=== PATIENT | female | born 1975 | race Caucasian/White ===

== ENCOUNTER → 2017-12-25 | Outpatient (CLI) | payer BC ==
--- NOTE | 2017-12-25 09:17 | US ---
EXAMINATION TYPE: US abdomen complete DATE OF EXAM: 12/25/2017 COMPARISON: NONE CLINICAL HISTORY: 42-year-old female R74.8 abnormal levels of other serum enzymes. Elevated liver enz ymes TECHNIQUE: Multiple sonographic images of the abdomen are obtained. FINDINGS: NEUROLOGY PROFESSOR NOTES: Technical limitations due to large amount of overlying bowel content EXAM MEASUREMENTS: Liver Length: 14.2 cm Gallbladder Wall: 0.3 cm CBD: 0.3 cm Spleen: 11.6 cm Right Kidney: 10.9 x 3.7 x 4.5 cm Left Kidney: 11.3 x 4.7 x 4.7 cm Pancreas: The majority is visualized and shows no gross abnormality. Liver: Homogeneous echotexture. No focal lesion seen. Gallbladder: No abnormal distention, pericholecystic fluid, or shadowing calculi. The wall thickness is at the upper limits of normal at 3 mm. Evidence for sonographic Guzman's sign: no CBD: wnl Spleen: wnl Right Kidney: no evidence of hydronephrosis Left Kidney: no evidence of hydronephrosis Upper IVC: wnl Abd Aorta: visualized portions appear wnl IMPRESSION: Unremarkable sonographic examination of the abdomen allowing for some slight limitations due to bowel gas..
== END | disposition home or self-care (01) ==
LOC: RADUSWWP 06:58
PROVIDERS: ATTEND Family Medicine
DX: R74.8 Abnormal levels of other serum enzymes (principal)
CPT/HCPCS: 76700

== ENCOUNTER → 2017-12-27 | Outpatient (CLI) | payer BC ==
--- NOTE | 2017-12-27 08:18 | CT ---
EXAMINATION TYPE: CT brain wo con DATE OF EXAM: 12/27/2017 COMPARISON: 11/28/2015 HISTORY: Lt sided [facility] CT DLP: 945.[address] of the brain was performed. The ventricles, basal cisterns and sulci overlying the cerebral convexities demonstrate a normal appe arance. There is no evidence for intracranial hemorrhage or sulcal effacement. No mass effects are seen. Osseous calvarium is intact. If symptoms persist consider MRI as clinically warranted. IMPRESSION: 1. No acute intracranial process is seen at this time.
== END | disposition home or self-care (01) ==
LOC: RADCTMAIN 06:58
PROVIDERS: ATTEND Family Medicine
DX: R51 Headache (principal)
CPT/HCPCS: 70450

== ENCOUNTER → 2019-02-18 | Outpatient (CLI) | payer BC ==
[2019-02-18 11:26] LABS: Basophils % (A) 0 %; Eosinophils # (A) 0.4 k/uL (0-0.7); Eosinophils % (A) 8 %; HCT 35.6 % (34.0-46.0); HGB 11.6 gm/dL (11.4-16.0); Lymphocytes # (A) 1.6 k/uL (1.0-4.8); Lymphocytes % (A) 31 %; MCH 27.7 pg (25.0-35.0); MCHC 32.7 g/dL (31.0-37.0); MCV 84.7 fL (80.0-100.0); Monocytes # (A) 0.3 k/uL (0-1.0); Monocytes % (A) 5 %; Neutrophils # (A) 2.9 k/uL (1.3-7.7); Neutrophils % (A) 54 %; Platelet Count 262 k/uL (150-450); RBC 4.21 m/uL (3.80-5.40); WBC 5.3 k/uL (3.8-10.6)
[2019-02-18 11:38] LABS: Partial Thromboplastin Time 28.9 sec (22.0-30.0); Prothrombin Time 10.5 sec (9.0-12.0)
[2019-02-18 12:40] LABS: Appearance,Urine Clear (Clear); Bilirubin,Urine Negative (Negative); Blood,Urine Negative (Negative); Color,Urine Yellow; Glucose,Urine (UA) Negative (Negative); Ketones,Urine Negative (Negative); Leukocyte Esterase,Urine Negative (Negative); Nitrite,Urine Negative (Negative); PH, Urine 5.5 (5.0-8.0); Protein,Urine Negative (Negative); Specific Gravity,Urine 1.023 (1.001-1.035); Urobilinogen,Urine <2.0 mg/dL (<2.0)
[2019-02-18 17:08] LABS: African American GFR (CKD) 105.4 (60.0-200.0); Anion Gap 9.3 mmol/L (4.00-12.00); Carbon Dioxide 25.7 mmol/L (21.6-31.8); Potassium 4.3 mmol/L (3.5-5.5); Total Bilirubin 0.4 mg/dL (0.2-1.2)
== END | disposition home or self-care (01) ==
LOC: LABWHC1 10:25
PROVIDERS: ATTEND Neurological Surgery
DX: G93.5 Compression of brain (principal); Q07.9 Congenital malformation of nervous system, unspecified
CPT/HCPCS: 36415; 80051; 81003; 82247; 82565; 82947; 84450; 84460; 84520; 85025; 85610; 85730; 87086

== ENCOUNTER → 2019-08-12 | Outpatient (CLI) | payer BC ==
--- NOTE | 2019-08-12 21:36 | MR ---
EXAMINATION TYPE: MR brain wo con DATE OF EXAM: 08/12/2019 COMPARISON: None HISTORY: Nausea/vomiting and dizziness for two weeks. Hx chiari and prior decompression surgery Multiplanar multiecho imaging of the brain was performed without contrast. The ventricles and sulci appear normal. There is no mass effect nor midline shift. There is no sign o f intracranial hemorrhage. Diffusion images show no evidence of acute infarct. Brainstem is intact. T he stokes-white matter structures have normal signal pattern. There is no evidence of cerebral edema. C erebellum appears normal. Corpus callosum is normal. Sella turcica appears normal. There is mucosal thickening in the anterior ethmoid sinuses. This extends into the frontal sinuses. T here is mild mucosal thickening right maxillary sinus. IMPRESSION: Normal MR scan of the brain. Sinusitis.
== END | disposition home or self-care (01) ==
LOC: RADMRIMAIN 20:24
PROVIDERS: ATTEND Family Medicine
DX: Q07.00 Arnold-Chiari syndrome without spina bifida or hydrocephalus (principal)
CPT/HCPCS: 70551

== ENCOUNTER → 2020-06-28 | Outpatient (CLI) | payer BC ==
--- NOTE | 2020-06-30 13:55 | MM ---
Reason for exam: screening (asymptomatic). Last mammogram was performed 6 years and 11 months ago. History: Family history of breast cancer in mother at age 71. Physical Findings: A clinical breast exam by your physician is recommended on an annual basis and results should be correlated with mammographic findings. MG 3D Screening Mammo W/Cad Bilateral CC and MLO view(s) were taken. Prior study comparison: August 10, 2013, left diagnostic mammogram w/CAD. March 05, 2013, CAD bilateral diagnostic mammogram. The breast tissue is heterogeneously dense. This may lower the sensitivity of mammography. Unchanged asymmetric density central left CC view. No significant changes when compared with prior studies. ASSESSMENT: Benign, BI-RAD 2 RECOMMENDATION: Routine screening mammogram of both breasts in 1 year.
== END | disposition home or self-care (01) ==
LOC: RADMAMWWP 13:09
PROVIDERS: ATTEND Family Medicine
DX: Z12.31 Encounter for screening mammogram for malignant neoplasm of breast (principal)
CPT/HCPCS: 77063; 77067

== ENCOUNTER 2020-07-10 09:36 | Observation (INO) | payer BC ==
[2020-07-10] MEDS ORDERED: ASPIRIN 81 MG PO STA (10:00)
--- NOTE | 2020-07-10 10:04 | ED ---
General Adult HPI - General Chief complaint: Chest Pain Stated complaint: chest pain Time Seen by Provider: 07/10/20 09:45 Source: patient, RN notes reviewed Mode of arrival: ambulatory Limitations: no limitations - History of Present Illness Initial comments: Patient is a pleasant 45-year-old female presenting to the emergency Department with complaints of chest discomfort. Onset of symptoms was close to 2 weeks ago. Discomfort feels like an ache however sometimes sharp. Discomfort worsened last night. There is some discomfort in the upper back, midline as well. Patient states it might be slightly difficult to get a deep breath and otherwise no dyspnea. No modifying factors. No associated nausea or diaphoresis. Patient was diagnosed with coronavirus over a month ago. - Related Data Home Medications Medication Instructions Recorded Confirmed Phentermine HCl [Adipex-P] 37.5 mg PO QAM 11/28/15 11/28/15 metFORMIN HCL [Glucophage] 500 mg PO BID 11/28/15 11/28/15 Previous Rx's Medication Instructions Recorded Butalb/Acetaminophen/Caffeine 1 - 2 cap PO Q4HR #15 cap 11/29/15 [Fioricet 50-300-40 mg Capsule] Allergies Allergy/AdvReac Type Severity Reaction Status Date / Time erythromycin base Allergy Rash/Hives Verified 07/10/20 09:41 Review of Systems ROS Statement: Those systems with pertinent positive or pertinent negative responses have been documented in the HPI. ROS Other: All systems not noted in ROS Statement are negative. Constitutional: Denies: fever Eyes: Denies: eye pain ENT: Denies: ear pain Respiratory: Denies: cough Cardiovascular: Reports: as per HPI, chest pain Endocrine: Denies: fatigue Gastrointestinal: Denies: abdominal pain Genitourinary: Denies: dysuria Musculoskeletal: Reports: back pain Skin: Denies: rash Neurological: Denies: weakness Past Medical History Additional Past Medical History / Comment(s): PCOS History of Any Multi-Drug Resistant Organisms: None Reported Past Surgical History: Section Additional Past Surgical History / Comment(s): cardiac ablations, brain decompression in 2019, Past Psychological History: No Psychological Hx Reported Smoking Status: Never smoker Past Alcohol Use History: None Reported Past Drug Use History: None Reported General Exam Limitations: no limitations General appearance: alert, in no apparent distress Head exam: Present: normocephalic Eye exam: Present: normal appearance Neck exam: Present: normal inspection Respiratory exam: Present: normal lung sounds bilaterally, chest wall tenderness (Mild sternal) Cardiovascular Exam: Present: regular rate, normal rhythm Expanded Peripheral pulses: 2+: Radial (R), Radial (L), Posterior Tibialis (R), Posterior Tibialis (L) GI/Abdominal exam: Present: soft. Absent: tenderness Extremities exam: Present: normal inspection. Absent: pedal edema, calf tenderness Neurological exam: Present: alert Psychiatric exam: Present: normal affect, normal mood Skin exam: Present: normal color Course Vital Signs 07/10/20 09:37 Temperature 98.7 F Pulse Rate 96 Respiratory 18 Rate Blood Pressure 136/71 O2 Sat by Pulse 98 Oximetry - Reevaluation(s) Reevaluation #1: 07/10/20 10:01 Patient refuses nitroglycerin. Patient also refuses any sort of pain medication. EKG Findings - EKG Comments: EKG Findings:: Normal sinus rhythm 86. HI 132. QRS 84. QT 374. QTC 447. Normal axis. Normal QRS. No acute ST change. Medical Decision Making - Medical Decision Making Patient reevaluated and resting comfortably in bed. Patient updated on results and plan. Case was discussed with Dr. Youngblood, who will admit covering for Dr. Mendoza. - Lab Data Result diagrams: 07/10/20 10:04 07/10/20 10:04 Lab Results 07/10/20 07/10/20 07/10/20 Range/Units 10:04 10:04 10:04 WBC 5.1 (3.8-10.6) k/uL RBC 4.16 (3.80-5.40) m/uL Hgb 11.8 (11.4-16.0) gm/dL Hct 36.7 (34.0-46.0) % MCV 88.1 (80.0-100.0) fL MCH 28.4 (25.0-35.0) pg MCHC 32.3 (31.0-37.0) g/dL RDW 13.4 (11.5-15.5) % Plt Count 243 (150-450) k/uL MPV 8.7 Neutrophils % 62 % Lymphocytes % 21 % Monocytes % 7 % Eosinophils % 7 % Basophils % 0 % Neutrophils # 3.2 (1.3-7.7) k/uL Lymphocytes # 1.1 (1.0-4.8) k/uL Monocytes # 0.4 (0-1.0) k/uL Eosinophils # 0.3 (0-0.7) k/uL Basophils # 0.0 (0-0.2) k/uL PT 10.6 (9.0-12.0) sec INR 1.0 (<1.2) APTT 25.3 (22.0-30.0) sec D-Dimer 0.36 (<0.60) mg/L FEU Sodium 138 (137-145) mmol/L Potassium 4.0 (3.5-5.1) mmol/L Chloride 106 (98-107) mmol/L Carbon Dioxide 25 (22-30) mmol/L Anion Gap 7 mmol/L BUN 8 (7-17) mg/dL Creatinine 0.74 (0.52-1.04) mg/dL Est GFR (CKD-EPI)AfAm >90 (>60 ml/min/1.73 sqM) Est GFR (CKD-EPI)NonAf >90 (>60 ml/min/1.73 sqM) Glucose 120 H (74-99) mg/dL Calcium 9.5 (8.4-10.2) mg/dL Magnesium 1.9 (1.6-2.3) mg/dL Total Bilirubin 0.4 (0.2-1.3) mg/dL AST 72 H (14-36) U/L ALT 61 H (4-34) U/L Alkaline Phosphatase 88 (38-126) U/L Troponin I (0.000-0.034) ng/mL NT-Pro-B Natriuret Pep pg/mL Total Protein 7.3 (6.3-8.2) g/dL Albumin 4.2 (3.5-5.0) g/dL Amylase 78 (30-110) U/L Lipase 69 (23-300) U/L 07/10/20 07/10/20 Range/Units 10:04 10:04 WBC (3.8-10.6) k/uL RBC (3.80-5.40) m/uL Hgb (11.4-16.0) gm/dL Hct (34.0-46.0) % MCV (80.0-100.0) fL MCH (25.0-35.0) pg MCHC (31.0-37.0) g/dL RDW (11.5-15.5) % Plt Count (150-450) k/uL MPV Neutrophils % % Lymphocytes % % Monocytes % % Eosinophils % % Basophils % % Neutrophils # (1.3-7.7) k/uL Lymphocytes # (1.0-4.8) k/uL Monocytes # (0-1.0) k/uL Eosinophils # (0-0.7) k/uL Basophils # (0-0.2) k/uL PT (9.0-12.0) sec INR (<1.2) APTT (22.0-30.0) sec D-Dimer (<0.60) mg/L FEU Sodium (137-145) mmol/L Potassium (3.5-5.1) mmol/L Chloride (98-107) mmol/L Carbon Dioxide (22-30) mmol/L Anion Gap mmol/L BUN (7-17) mg/dL Creatinine (0.52-1.04) mg/dL Est GFR (CKD-EPI)AfAm (>60 ml/min/1.73 sqM) Est GFR (CKD-EPI)NonAf (>60 ml/min/1.73 sqM) Glucose (74-99) mg/dL Calcium (8.4-10.2) mg/dL Magnesium (1.6-2.3) mg/dL Total Bilirubin (0.2-1.3) mg/dL AST (14-36) U/L ALT (4-34) U/L Alkaline Phosphatase (38-126) U/L Troponin I <0.012 (0.000-0.034) ng/mL NT-Pro-B Natriuret Pep 223 pg/mL Total Protein (6.3-8.2) g/dL Albumin (3.5-5.0) g/dL Amylase (30-110) U/L Lipase (23-300) U/L Disposition Clinical Impression: Chest pain Disposition: ADMITTED IP TO THIS HOSP Is patient prescribed a controlled substance at d/c from ED?: No Referrals: Simone Mendoza MD [Primary Care Provider] - 1-2 days Decision Time: 11:32
[2020-07-10 10:14] LABS: Basophils % (A) 0 %; Eosinophils # (A) 0.3 k/uL (0-0.7); Eosinophils % (A) 7 %; HCT 36.7 % (34.0-46.0); HGB 11.8 gm/dL (11.4-16.0); Lymphocytes # (A) 1.1 k/uL (1.0-4.8); Lymphocytes % (A) 21 %; MCH 28.4 pg (25.0-35.0); MCHC 32.3 g/dL (31.0-37.0); MCV 88.1 fL (80.0-100.0); Mean Platelet Volume 8.7; Monocytes # (A) 0.4 k/uL (0-1.0); Monocytes % (A) 7 %; Neutrophils # (A) 3.2 k/uL (1.3-7.7); Neutrophils % (A) 62 %; Platelet Count 243 k/uL (150-450); RBC 4.16 m/uL (3.80-5.40); RDW 13.4 % (11.5-15.5); WBC 5.1 k/uL (3.8-10.6)
[2020-07-10 10:22] LABS: ALT 61 U/L (4-34); AST 72 U/L (14-36); African American GFR (CKD) >90 (>60 ml/min/1.73 sqM); Albumin 4.2 g/dL (3.5-5.0); Alkaline Phosphatase 88 U/L (38-126); Amylase 78 U/L (30-110); Anion Gap 7 mmol/L; Blood Urea Nitrogen 8 mg/dL (7-17); Calcium 9.5 mg/dL (8.4-10.2); Carbon Dioxide 25 mmol/L (22-30); Chloride 106 mmol/L (98-107); Glucose 120 mg/dL (74-99); Lipase 69 U/L (23-300); Magnesium 1.9 mg/dL (1.6-2.3); Non-African American GFR(CKD) >90 (>60 ml/min/1.73 sqM); Sodium 138 mmol/L (137-145); Total Bilirubin 0.4 mg/dL (0.2-1.3); Total Protein 7.3 g/dL (6.3-8.2)
--- NOTE | 2020-07-10 10:27 | XR ---
EXAMINATION TYPE: XR chest 2V DATE OF EXAM: 07/10/2020 COMPARISON: 11/25/2012 INDICATION: Chest pain TECHNIQUE: Frontal and lateral views of the chest are obtained. FINDINGS: The heart size is normal. The pulmonary vasculature is normal. The lungs are clear. IMPRESSION: 1. No acute pulmonary process.
[2020-07-10 10:31] LABS: D-Dimer 0.36 mg/L FEU (<0.60); Partial Thromboplastin Time 25.3 sec (22.0-30.0); Prothrombin Time 10.6 sec (9.0-12.0)
[2020-07-10] MEDS ORDERED: NITROGLYCERIN SL TABS 0.4 MG TAB SUBLINGUAL PRN (11:32)
--- NOTE | 2020-07-10 12:32 | US ---
EXAMINATION TYPE: US gallbladder DATE OF EXAM: 07/10/2020 COMPARISON: 12/25/2017 CLINICAL HISTORY: pain. back pain, elevated liver enzymes EXAM MEASUREMENTS: Liver Length: 15.0 cm Gallbladder Wall: 0.2 cm CBD: 0.4 cm Right Kidney: 10.1 x 4.8 x 4.4 cm *Technical limitations due to patient's body habitus and large amount of overlying bowel content Pancreas: Obscured by bowel gas Liver: appears wnl as visualized Gallbladder: no evidence of stones Evidence for sonographic Guzman's sign: no CBD: limited evaluation Right Kidney: no evidence of hydronephrosis IMPRESSION: 1. No acute ultrasound abnormality right upper quadrant
[2020-07-10] MEDS ORDERED: RX INFO: IV CONTRAST WAS GIVEN 1 EACH MISC MISCELLANE PRN (15:49)
[2020-07-10] MEDS ORDERED: methylPREDNISolone SOD SUCCI 125 MG/2 ML VIAL IV STA (16:08)
[2020-07-10] MEDS ORDERED: diphenhydrAMINE 50 MG/ML 1 ML VIAL IVP STA (16:08)
[2020-07-10] MEDS ORDERED: FAMOTIDINE 20 MG/2 ML VIAL IV STA (16:09)
--- NOTE | 2020-07-10 17:23 | CT ---
EXAMINATION TYPE: CT chest angio for PE DATE OF EXAM: 07/10/2020 COMPARISON: 01/20/2013 HISTORY: CHEST PAIN AND DIFFICULTY BREATHING. CT DLP: 446.2 mGycm Automated exposure control for dose reduction was used. CONTRAST: Performed with IV Contrast, patient injected with 76ML mL of Isovue 370. There are 3-D post processed images. The lungs are clear of infiltrate. There is no pleural effusion. There is no pericardial effusion. He art size is normal. There is no mediastinal adenopathy. There are no hilar masses. Thoracic aorta is intact. There is no aneurysm or dissection. There is normal contrast opacification of the pulmonary arteries. There are n o filling defects. Upper abdominal soft tissues are intact. There is some spurring in the thoracic spine. IMPRESSION: Normal exam. No evidence of pulmonary embolism.
--- NOTE | 2020-07-10 19:07 | P.HPIM ---
History of Present Illness H&P Date: 07/10/20 Chief Complaint: Chest pain History of presenting complaint: This is a very pleasant 45-year-old patient, follows the Dr. Simone Mendoza. Chronic stable medical conditions include polycystic ovarian syndrome for which she stopped taking the metformin, had brain decompression 2019 due to Chiari syndrome which she was having headaches now resolved. Cardiac ablation for AV reentry tachycardia. Patient for a week has been having pain to the middle of the chest. More so but localized. Also at times she has the pain in the middle of the back. Sometimes she is unable to take a full breath. No cough. No fever no chills. Appetite is fair. No edema. Patient denies COVID couple of months ago. Predominantly give her a headache and some tiredness. She tested positive with both appears to be IgM and IgG antibodies at that time. This week patient tested negative for COVID and she had to visit her mother at the [facility]. Patient does feel of pain is more pronounced when she is laying down. Not necessarily related to activity. Patient also has GERD symptoms still co ntrolled with Protonix. Review of systems: GEN.: None EYES: None HEENT: None NECK: None RESPIRATORY: None CARDIOVASCULAR: None GASTROINTESTINAL: None GENITOURINARY: None MUSCULOSKELETAL: As above LYMPHATICS: None HEMATOLOGICAL: None PSYCHIATRY: None NEUROLOGICAL: None Past medical history to include: Polycystic ovary syndrome, brain decompression 2019 for Chiari malformation, AV jillian reentry tachycardia with ablation, peptic ulcer disease, GERD Social history: . Does not smoke or drink alcohol Physical examination: VITAL SIGNS: 98.7, 96, 18, 1 36 x 71, 98% room air GENERAL: BMI 36, sitting on bed, comfortable. EYES: Pupils equal. Conjunctiva normal. HEENT: External appearance of nose and ears normal, oral cavity grossly normal. NECK: JVD not raised; masses not palpable. HEART: First and second heart sounds are normal; no edema. LUNGS: Respiratory rate normal; clear to auscultation. ABDOMEN: Soft, nontender, liver spleen not palpable, no masses palpable. PSYCH: Alert and oriented x3; mood and affect normal. NEUROLOGICAL: Cranial nerves grossly intact; no facial asymmetry, power and sensation grossly intact. LYMPHATICS: No lymph nodes palpable in the axilla and neck MUSCULAR skeletal: Localized tenderness on the left side of the sternum, reproducible, localized tenderness just left to the thoracic spine. Reproducible INVESTIGATIONS, reviewed in the clinical context: White count 5.1 hemoglobin 11.8 platelets 243 potassium 4.0 creatinine 0.74 AST 72 ALT 61 Troponin I 3 negative D-dimer 0.36 EKG tracing personally reviewed by me-normal sinus rhythm Chest x-ray film personally reviewed by me-lung santizo clear Assessment: -This is a patient who presents with 1 week of chest pain. Not related to activity. Noncardiac sounding. Patient has localized superficial tenderness at the costochondral junction both anteriorly and posterior daily. Would like to rule out a cardiac cause. Troponins have been negative. EKG is unremarkable. -Rule out PE. Low probability -Obesity BMI 36 -Polycystic ovarian syndrome -History of brain decompression for Chiari's syndrome -GERD -Peptic ulcer disease patient is pending a follow-up endoscopy in the next few days Plan: Care was discussed with the patient. Serial cardiac enzymes and place. Cartilage he consulted. Though less likely we'll do a computed tomography scan of the chest to rule out PE. Past Medical History Additional Past Medical History / Comment(s): PCOS, brain decompression 2019 due to chrari syndrome. av rentry tachycardia History of Any Multi-Drug Resistant Organisms: None Reported Past Surgical History: Section Additional Past Surgical History / Comment(s): cardiac ablations, brain decompression in 2019 Past Anesthesia/Blood Transfusion Reactions: No Reported Reaction Past Psychological History: No Psychological Hx Reported Smoking Status: Never smoker Past Alcohol Use History: None Reported Past Drug Use History: None Reported - Past Family History Mother Additional Family Medical History / Comment(s): multiple strokes. breast CA. htn. dm Father Additional Family Medical History / Comment(s): [place] Medications and Allergies Home Medications Medication Instructions Recorded Confirmed Type Acetaminophen Tab [Tylenol] 1,000 mg PO Q8H PRN 07/10/20 07/10/20 History Pantoprazole [Protonix] 40 mg PO HS 07/10/20 07/10/20 History Allergies Allergy/AdvReac Type Severity Reaction Status Date / Time egg Allergy Mild Unknown Verified 07/10/20 12:02 erythromycin base Allergy Rash/Hives Verified 07/10/20 12:02 Gadolinium-Containing Allergy Swelling Verified 07/10/20 18:35 Contrast Medi Physical Exam Vitals: Vital Signs Temp Pulse Pulse Resp BP BP Pulse Ox 07/10/20 11:50 98.8 F 77 18 134/89 100 07/10/20 11:37 79 18 126/86 98 07/10/20 09:37 98.7 F 96 18 136/71 98 Intake and Output 07/09/20 07/10/20 07/10/20 22:59 06:59 14:59 Other: Weight 104.326 kg Results CBC & Chem 7: 07/10/20 10:04 07/10/20 10:04 Labs: Abnormal Lab Results - Last 24 Hours (Table) 07/10/20 Range/Units 10:04 Glucose 120 H (74-99) mg/dL AST 72 H (14-36) U/L ALT 61 H (4-34) U/L Thrombosis Risk Factor Assmnt - Choose All That Apply Each Factor Represents 1 point: Age 41-60 years Thrombosis Risk Factor Assessment Total Risk Factor Score: 1 Thrombosis Risk Factor Assessment Level: Low Risk
[2020-07-11 04:36] LABS: Cholesterol 210 mg/dL (<200); HDL Cholesterol 69 mg/dL (40-60); LDL Cholesterol,Calculated 104 mg/dL (0-99); Triglycerides 183 mg/dL (<150)
[2020-07-11] MEDS ORDERED: ACETAMINOPHEN TAB 325 MG TAB PO PRN (08:41)
[2020-07-11] MEDS ORDERED: ASPIRIN 325 MG TAB PO SCH (09:00)
--- NOTE | 2020-07-11 10:25 | ECHOF ---
Referral Reason:cp, sob MEASUREMENTS -------- HEIGHT: 170.2 cm WEIGHT: 105.2 kg BP: RVIDd: 3.2 cm (< 3.3) IVSd: 1.1 cm (0.6 - 1.1) LVIDd: 3.9 cm (3.9 - 5.3) LVPWd: 1.0 cm (0.6 - 1.1) IVSs: 1.4 cm LVIDs: 3.1 cm LVPWs: 1.2 cm LAESV Index (A-L): 21.69 ml/m Ao Diam: 3.0 cm (2.0 - 3.7) AV Cusp: 2.1 cm (1.5 - 2.6) MV EXCURSION: 13.536 mm (> 18.000) MV EF SLOPE: 85 mm/s (70 - 150) EPSS: 0.9 cm MV E Claude: 0.76 m/s MV DecT: 186 ms MV A Claude: 0.69 m/s MV E/A Ratio: 1.11 RAP: 5.00 mmHg RVSP: 20.32 mmHg FINDINGS -------- Sinus rhythm. This was a technically adequate study. LV size, wall thickness and systolic function are normal, with an EF greater than 55%. The left cody tricular size is normal. The diastolic filling pattern is normal for the age of the patient 7.48. The right ventricle is normal in size. Normal LA size by volume 22+/-6 ml/m2. The right atrial size is normal. The aortic valve is trileaflet, and appears structurally normal. No aortic stenosis or regurgitation. The mitral valve is normal. Mild mitral regurgitation is present. The tricuspid valve appears structurally normal. Trace tricuspid regurgitation present. Right cody tricular systolic pressure is normal at < 35 mmHg. There is no pulmonic regurgitation present. The aortic root size is normal. There is no pericardial effusion. CONCLUSIONS -------- 1. LV size, wall thickness and systolic function are normal, with an EF greater than 55%. 2. Normal LA size by volume 22+/-6 ml/m2. 3. The aortic valve is trileaflet, and appears structurally normal. No aortic stenosis or regurgitati on. 4. Mild mitral regurgitation is present. 5. Trace tricuspid regurgitation present. 6. There is no pericardial effusion. PRINCIPAL CYBER ENGINEER: Abril Guo RDCS
--- NOTE | 2020-07-11 11:41 | P.CRDCN ---
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 We have been asked to see in consultation for chest pain. She states for the last few days she has been experiencing a tender achy pain in the chest in the mid-sternal region that radiates through to her back. She states the pain is worse with movement of her torso and deep inspiration. She denies associated shortness of breath, dizziness, palpitations, nausea, vomiting or diaphoresis. DIAGNOSTICS EKG reveals sinus mechanism with no acute ST or T wave abnormalities noted. Telemetry tracings indicate sinus mechanism with no acute arrhythmias. Chest xray negative for an acute cardiopulmonary process. CTA negative for pulmonary embolism with normal appearing thoracic aorta. Laboratory reviewed, CBC unremarkable, d-dimer 0.36, sodium 138, potassium 4.0, creatinine 0.74, magnesium 1.9, cardiac enzymes negative 3, NT proBNP 223, triglycerides 183, LDL 104 and HDL 69. She takes no daily cardiac medications. REVIEW OF SYSTEMS At the time of my exam: CONSTITUTIONAL: Denies fever or chills. CARDIOVASCULAR: Denies chest pain, shortness of breath, orthopnea, PND or palpitations. RESPIRATORY: Denies cough. GASTROINTESTINAL: Denies abdominal pain, diarrhea, constipation, nausea or vomiting. MUSCULOSKELETAL: Complains of reproducible ache in the midsternal region. NEUROLOGIC: Denies numbness, tingling, headacbe or weakness. ENDOCRINE: Denies fatigue, weight change, polydipsia or polyurina. GENITOURINARY: Denies burning, hematuria or urgency with micturation. HEMATOLOGIC: Denies history of anemia or bleeding. PHYSICAL EXAMINATION Blood pressure 116/69 heart rate 69 afebrile and maintaining oxygen saturation on room air. CONSTITUTIONAL: No apparent distress. HEENT: Head is normocephalic. Pupils are equal, round. Sclerae anicteric. Mucous membranes of the mouth are moist. No JVD. No carotid bruit. CHEST EXAMINATION: Lungs are clear to auscultation. Positive mild chest wall tenderness is noted on palpation and with deep breathing. HEART EXAMINATION: Regular rate and rhythm. S1, S2 heard. No murmurs, gallops or rub. ABDOMEN: Soft, nontender. Positive bowel sounds. EXTREMITIES: 2+ peripheral pulses, no lower extremity edema and no calf tenderness. NEUROLOGIC EXAMINATION: Patient is awake, alert and oriented x3. 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 Obtain 2-D echocardiogram and Doppler study to assess cardiac structure and function. Perform stress echocardiogram to assess for stress-induced cardiac ischemia. If stress test is normal she may be discharged from a cardiac perspective. Thank you kindly for this consultation. Nurse Practitioner note has been reviewed, I agree with a documented findings and plan of care. Patient was seen and examined. Past Medical History Additional Past Medical History / Comment(s): PCOS, brain decompression 2019 due to chrari syndrome. av rentry tachycardia History of Any Multi-Drug Resistant Organisms: None Reported Past Surgical History: Section Additional Past Surgical History / Comment(s): cardiac ablations, brain decompression in 2019 Past Anesthesia/Blood Transfusion Reactions: No Reported Reaction Past Psychological History: No Psychological Hx Reported Smoking Status: Never smoker Past Alcohol Use History: None Reported Past Drug Use History: None Reported - Past Family History Mother Additional Family Medical History / Comment(s): multiple strokes. breast CA. htn. dm Father Additional Family Medical History / Comment(s): DC Medications and Allergies Home Medications Medication Instructions Recorded Confirmed Type Acetaminophen Tab [Tylenol] 1,000 mg PO Q8H PRN 07/10/20 07/10/20 History Pantoprazole [Protonix] 40 mg PO HS 07/10/20 07/10/20 History Allergies Allergy/AdvReac Type Severity Reaction Status Date / Time egg Allergy Mild Unknown Verified 07/10/20 12:02 erythromycin base Allergy Rash/Hives Verified 07/10/20 12:02 Gadolinium-Containing Allergy Swelling Verified 07/10/20 18:35 Contrast Medi Physical Exam Vitals: Vital Signs Temp Pulse Pulse Resp BP BP Pulse Ox 07/11/20 04:00 97.6 F 69 16 116/69 99 07/11/20 02:00 83 17 07/10/20 23:44 97.8 F 83 17 99/62 95 07/10/20 19:45 98.1 F 92 16 134/77 96 07/10/20 15:12 98.5 F 77 18 125/83 100 07/10/20 11:50 98.8 F 77 18 134/89 100 07/10/20 11:37 79 18 126/86 98 07/10/20 09:37 98.7 F 96 18 136/71 98 Intake and Output 07/10/20 07/11/20 07/11/20 22:59 06:59 14:59 Intake Total 240 Balance 240 Intake: Oral 240 Other: Voiding Method Toilet # Voids 1 Weight 105.4 kg Results 07/10/20 10:04 07/10/20 10:04 Cardiac Enzymes 07/10/20 07/10/20 07/10/20 Range/Units 10:04 10:04 12:14 AST 72 H (14-36) U/L Troponin I <0.012 <0.012 (0.000-0.034) ng/mL 07/10/20 Range/Units 16:03 AST (14-36) U/L Troponin I <0.012 (0.000-0.034) ng/mL Coagulation 07/10/20 Range/Units 10:04 PT 10.6 (9.0-12.0) sec APTT 25.3 (22.0-30.0) sec Lipids 07/10/20 Range/Units 10:04 Triglycerides 183 H (<150) mg/dL Cholesterol 210 H (<200) mg/dL HDL Cholesterol 69 H (40-60) mg/dL CBC 07/10/20 Range/Units 10:04 WBC 5.1 (3.8-10.6) k/uL RBC 4.16 (3.80-5.40) m/uL Hgb 11.8 (11.4-16.0) gm/dL Hct 36.7 (34.0-46.0) % Plt Count 243 (150-450) k/uL Comprehensive Metabolic Panel 07/10/20 Range/Units 10:04 Sodium 138 (137-145) mmol/L Potassium 4.0 (3.5-5.1) mmol/L Chloride 106 (98-107) mmol/L Carbon Dioxide 25 (22-30) mmol/L BUN 8 (7-17) mg/dL Creatinine 0.74 (0.52-1.04) mg/dL Glucose 120 H (74-99) mg/dL Calcium 9.5 (8.4-10.2) mg/dL AST 72 H (14-36) U/L ALT 61 H (4-34) U/L Alkaline Phosphatase 88 (38-126) U/L Total Protein 7.3 (6.3-8.2) g/dL Albumin 4.2 (3.5-5.0) g/dL Current Medications Generic Name Dose Route Start Last Admin Trade Name Freq PRN Reason Stop Dose Admin Aspirin 325 mg 07/11/20 09:00 Aspirin 325 Mg Tab PO DAILY TIANNA Miscellaneous Information 1 each 07/10/20 15:49 Rx Info: Iv Contrast Was Given 1 Each Misc MISCELLANE 07/12/20 15:57 DAILY PRN Per Protocol Nitroglycerin 0.4 mg 07/10/20 11:32 Nitroglycerin Sl Tabs 0.4 Mg Tab SUBLINGUAL Q5M PRN Chest Pain Sodium Chloride 10 ml 07/10/20 21:00 07/10/20 20:05 Sodium Chloride 0.9% Flush 10 Ml Syringe IV 10 ml BID TIANNA Administration Intake and Output 07/10/20 07/11/20 07/11/20 22:59 06:59 14:59 Intake Total 240 Balance 240 Intake: Oral 240 Other: Voiding Method Toilet # Voids 1 Weight 105.4 kg 07/10/20 10:04 07/10/20 10:04
[2020-07-11 11:59] VITALS: RESP 17
[2020-07-11 12:00] VITALS: BP 119/73; PULSE 104; TEMP 97.9
--- NOTE | 2020-07-12 00:57 | P.DS ---
Providers Date of admission: 07/10/20 11:32 Expected date of discharge: 07/11/20 Attending physician: Crow Youngblood Consults: 07/10/20 11:32 Consult Physician Urgent Consulting Provider: Sanjay Mccurdy Consult Reason/Comments: cp Do you want consulting provider notified?: Yes Primary care physician: Simone Aguirre [facility] Course: Chief Complaint: Chest pain History of presenting complaint: This is a very pleasant 45-year-old patient, follows the Dr. Simone Mendoza. Chronic stable medical conditions include polycystic ovarian syndrome for which she stopped taking the metformin, had brain decompression 2019 due to Chiari syndrome which she was having headaches now resolved. Cardiac ablation for AV reentry tachycardia. Patient for a week has been having pain to the middle of the chest. More so but localized. Also at times she has the pain in the middle of the back. Sometimes she is unable to take a full breath. No cough. No fever no chills. Appetite is fair. No edema. Patient denies COVID couple of months ago. Predominantly give her a headache and some tiredness. She tested positive with both appears to be IgM and IgG antibodies at that time. This week patient tested negative for COVID and she had to visit her mother at the [facility]. Patient does feel of pain is more pronounced when she is laying down. Not necessarily related to activity. Patient also has GERD symptoms still controlled with Protonix. CT chest was negative for PE. Stress echocardiogram was unremarkable. Reported by cardiogenic to be negative and okay for discharge. Patient is felt to have acute costochondritis. Consultation: Dr. Hartley from cardiology Past medical history to include: Polycystic ovary syndrome, brain decompression 2019 for Chiari malformation, AV jillian reentry tachycardia with ablation, peptic ulcer disease, GERD Social history: . Does not smoke or drink alcohol Physical examination: VITAL SIGNS: 97.9, 104, 17, 119/73, 97% room air GENERAL: BMI 36, sitting on bed, comfortable. EYES: Pupils equal. Conjunctiva normal. HEENT: External appearance of nose and ears normal, oral cavity grossly normal. NECK: JVD not raised; masses not palpable. HEART: First and second heart sounds are normal; no edema. LUNGS: Respiratory rate normal; clear to auscultation. ABDOMEN: Soft, nontender, liver spleen not palpable, no masses palpable. PSYCH: Alert and oriented x3; mood and affect normal. MUSCULAR skeletal: Localized tenderness on the left side of the sternum, reproducible, localized tenderness just left to the thoracic spine. Reproducible INVESTIGATIONS, reviewed in the clinical context: White count 5.1 hemoglobin 11.8 platelets 243 potassium 4.0 creatinine 0.74 AST 72 ALT 61 Troponin I 3 negative D-dimer 0.36 EKG tracing personally reviewed by me-normal sinus rhythm Chest x-ray film personally reviewed by me-lung santizo clear 2-D echo-EF 55% Stress echocardiogram-reported no formal report available to be negative Assessment: -Anterior and posterior chest pain-acute costochondritis -PE ruled out -Obesity BMI 36 -Polycystic ovarian syndrome -History of brain decompression for Chiari's syndrome -GERD -Peptic ulcer disease patient is pending a follow-up endoscopy in the next few days Disposition: Home Patient Condition at Discharge: Stable Plan - Discharge Summary Discharge Rx Participant: No New Discharge Prescriptions: Continue Pantoprazole [Protonix] 40 mg PO HS Acetaminophen Tab [Tylenol] 1,000 mg PO Q8H PRN PRN Reason: tooth pain Discharge Medication List Acetaminophen Tab [Tylenol] 1,000 mg PO Q8H PRN 07/10/20 [History] Pantoprazole [Protonix] 40 mg PO HS 07/10/20 [History] Follow up Appointment(s)/Referral(s): Keesha Wilson MD [STAFF PHYSICIAN] - 2 Weeks Simone Mendoza MD [Primary Care Provider] - 1-2 days Patient Instructions/Handouts: Chest Pain (DC) Activity/Diet/Wound Care/Special Instructions: heart healthy diet activity limited until follow up Discharge Disposition: HOME SELF-CARE
[2020-07-12] MEDS ORDERED: ASPIRIN 81 MG PO SCH (09:00)
--- NOTE | 2020-07-13 10:21 | ECHOS ---
STRESS ECHOCARDIOGRAM DATE OF SERVICE 07/11/2020 AGE 45 SEX Female HT 67" WT 232 lbs PROTOCOL Stress echo STAGE III DURATION OF EXERCISE 9 minutes HEART RATE REST 86 BLOOD PRESSURE REST 140/82 MAXIMUM HEART RATE ACHIEVED 181 MAXIMUM BLOOD PRESSURE 153/63 85% MPHR 150 100% MPHR 177 METs 10.3 INDICATIONS Chest pain. RESULTS Baseline rhythm is sinus mechanism, rate of 86 and normal axis and intervals. Normal electrocardiogram. Baseline blood pressure 120/42 mmHg. Patient exercised on Darren protocol for 9 minutes reaching peak rate 181 beats per minute which is equal to 102% maximum predicted heart rate. Peak blood pressure 153/63 mmHg. Test was terminated secondary to fatigue. There was no chest pain. Electrocardiograph monitoring revealed no evidence of diagnostic ischemic ST deviation. FINDINGS Baseline echocardiogram revealed normal wall motion. At peak exercise, there was normal wall motion augmentation with no hypokinesis or dyskinesis. CONCLUSION 1. Average exercise tolerance with normal electrocardiograph response to exercise. 2. Normal stress echocardiogram with no evidence of stress-induced ischemia. MMODL / IJN: [id number] /
== END 2020-07-11 14:56 | disposition home or self-care (01) ==
LOC: EC 09:36 → 3SCARD 11:32
PROVIDERS: ADMIT Hospitalist; ATTEND Hospitalist
DX: M94.0 Chondrocostal junction syndrome [Tietze] (principal); E28.2 Polycystic ovarian syndrome; K21.9 Gastro-esophageal reflux disease without esophagitis; Z87.11 Personal history of peptic ulcer disease; M54.6 Pain in thoracic spine; M54.89 Other dorsalgia; Z86.16 Personal history of COVID-19; E66.9 Obesity, unspecified; Z68.36 Body mass index [BMI] 36.0-36.9, adult; Z79.84 Long term (current) use of oral hypoglycemic drugs; Z79.899 Other long term (current) drug therapy; Z86.718 Personal history of other venous thrombosis and embolism; Z88.8 Allergy status to other drugs, medicaments and biological substances; Z91.041 Radiographic dye allergy status; Z88.1 Allergy status to other antibiotic agents; Z91.012 Allergy to eggs; Z80.3 Family history of malignant neoplasm of breast; Z82.49 Family history of ischemic heart disease and other diseases of the circulatory system; Z83.3 Family history of diabetes mellitus; Z82.3 Family history of stroke
CPT/HCPCS: 96374; 96375; 93005 ×2; 99285; 36415; 93306; 93351; 85379; 83880; 80061; 80053; 82150; 83690; 83735; 84484; 85025; 85610; 85730; 71046; 76705; 71275; G0378 ×2; J1200; J2930; Q9967

== ENCOUNTER → 2020-10-24 | Outpatient (CLI) | payer BC ==
--- NOTE | 2020-10-24 21:10 | MR ---
MRI BRAIN and CERVICAL SPINE: CLINICAL HISTORY: Chiari malformation, Q07.00, dizziness and loss of balance, headaches and neck pain TECHNIQUE: Multiplanar, multisequence imaging of the brain and cervical spine is performed without co ntrast. COMPARISON: Brain MRI 08/12/2019 FINDINGS: Brain MRI: Postop changes are noted to the posterior fossa, posterior aspect of C1. There is no restr icted diffusion. No hydrocephalus or hemorrhage. Inflammatory change present within the maxillary sin us greater on the right, ethmoid air cells, frontal and sphenoid sinus. Cerebellopontine angles, ferdinand us callosum, pituitary, cervical medullary junction are within normal limits. Brain signal is normal. There are normal vascular flow voids. Orbits show symmetric appearance. IMPRESSION: Postop changes. Extensive sinus disease. Unremarkable brain MRI. Cervical spine MRI: There is a spinal curvature. Sagittal images of the cervical spine show the posto p changes to the posterior cranial fossa. The cervical and upper thoracic spinal cord is normal in c ourse, caliber, and signal. Vertebral alignment is anatomic. The vertebral body heights are normal. The bone marrow signal intensity is within normal limits. Mild spondylosis is noted especially at C 6-7 with associated loss of disc height signal C6-7. Axial images show posterior extension endplate disc complex and C6-7 causing only mild anterior mass effect on the thecal sac, there is some right-sided foraminal encroachment due to uncovertebral joint hypertrophy. Remaining levels are essentially unremarkable. IMPRESSION: Mild degenerative disc disease, postop change
== END | disposition home or self-care (01) ==
LOC: RADMRIMAIN 18:13
PROVIDERS: ATTEND Family Medicine
DX: M50.30 Other cervical disc degeneration, unspecified cervical region (principal); J32.9 Chronic sinusitis, unspecified; Z98.890 Other specified postprocedural states
CPT/HCPCS: 70551; 72141

== ENCOUNTER → 2020-10-25 | Outpatient (CLI) | payer BC ==
--- NOTE | 2020-10-25 09:39 | CT ---
EXAMINATION TYPE: CT iac wo con DATE OF EXAM: 10/25/2020 COMPARISON: MRI brain 10/24/2020, CT brain 12/27/2017 HISTORY: H/O dizziness CT DLP: 247 mGycm Automated exposure control for dose reduction was used. Contrast: None Technique: Axial images through the petrous ridges and internal auditory canals at 1 mm thick section s. Reconstructed images in the coronal plane are reviewed. FINDINGS: Note is made of mucosal thickening within the right inferior maxillary sinus. There is some mucosal t hickening within the sphenoid sinuses and ethmoid air cells. Remaining paranasal sinuses are clear. M astoid air cells are clear. Temporomandibular junctions are normal. No expansion or erosion of the internal auditory canals is evident. Semicircular canals are normal. I ncus and malleus have normal orientation. Cochlea are normal. Middle ears are clear. claim auditor y canals are normal. There is a high riding right jugular bulb. IMPRESSION: 1. UNREMARKABLE INTERNAL AUDITORY CANALS. 2. SCATTERED AREAS OF MUCOSAL THICKENING. CORRELATE FOR CHRONIC SINUSITIS
== END | disposition home or self-care (01) ==
LOC: RADCTMAIN 07:10
PROVIDERS: ATTEND Student in an Organized Health Care Education/Training Program
DX: R42 Dizziness and giddiness (principal)
CPT/HCPCS: 70480

== ENCOUNTER → 2021-02-27 | Day surgery (SDC) | payer BC ==
[2021-02-24 10:00] VITALS: BMI 36.0
[~2021-02-27] MED LIST: SODIUM CHLORIDE 0.9% 1,000 ML IV SCH
[2021-02-27 10:44] VITALS: BP 121/66; PULSE 83; RESP 18; TEMP 99.2
--- NOTE | 2021-02-27 16:07 | P.EPPROC ---
- EP Procedure Note Electrophysiology Procedure Note: Diagnosis Near-syncope Twelve-lead EKG shows sinus rhythm normal MO , normal QT interval narrow QRS with a terminal deflection in the QRS of lead V1, possible epsilon waves Normal ST segments, no T-wave inversions No delta waves Tilt table test for protocol Baseline blood pressure 128/78 mmHg Baseline heart rate 76 beats a minute Patient was tilted upright at night was 70 per protocol No change in heart rate and blood pressure No evidence for neurocardiogenic syncope Impression Normal heart rate and blood pressure response to upright tilting Terminal deflection in the QRS of lead V1 which is consistently present, This raises the question of a possible epsilon wave in this 46-year-old female with near syncope She does not appear to be on any sodium channel blockers
== END ==
LOC: CATHEP 10:24
PROVIDERS: ATTEND Internal Medicine Clinical Cardiac Electrophysiology
DX: R55 Syncope and collapse (principal)
CPT/HCPCS: 93660

== ENCOUNTER → 2022-03-30 | Outpatient (CLI) | payer BC ==
--- NOTE | 2022-04-02 11:58 | MM ---
Reason for Exam: Screening (asymptomatic). Last mammogram was performed 1 year(s) and 9 month(s) ago. Patient History: Menarche at age 14. First Full-Term at age 22. Premenopausal. Mother had breast cancer, age 71. Risk Values: Valarie 5 year model risk: 1.6%. NCI Lifetime model risk: 17.6%. Prior Study Comparison: 03/05/2013 Bilateral Diagnostic Mammogram, [facility]. 08/10/2013 Left Diagnostic Mammogram, [facility]. 06/28/2020 Bilateral Screening Mammogram, [facility]. Tissue Density: The breast tissue is heterogeneously dense. This may lower the sensitivity of mammography. Findings: Analyzed By CAD. There is no suspicious group of microcalcifications or new suspicious mass in either breast. Overall Assessment: Incomplete: need additional imaging evaluation, BI-RAD 0 Management: Diagnostic Breast Ultrasound of the right breast. Targeted ultrasound right breast. Palpable lump per patient. Electronically signed and approved by: Joseph Mar M.D.
== END | disposition home or self-care (01) ==
LOC: RADMAMWWP 16:11
PROVIDERS: ATTEND Family Medicine
DX: Z12.31 Encounter for screening mammogram for malignant neoplasm of breast (principal); Z80.3 Family history of malignant neoplasm of breast
CPT/HCPCS: 77063; 77067

== ENCOUNTER → 2022-04-03 | Outpatient (CLI) | payer BC ==
--- NOTE | 2022-04-03 14:32 | USB ---
Reason for Exam: Additional evaluation requested from abnormal screening. Patient History: Menarche at age 14. First Full-Term at age 22. Premenopausal. Mother had breast cancer, age 71. Risk Values: Valarie 5 year model risk: 1.6%. NCI Lifetime model risk: 17.6%. Technique: Method: Targeted. Prior Study Comparison: 08/10/2013 Left Diagnostic Mammogram, [facility]. 06/28/2020 Bilateral Screening Mammogram, [facility]. 03/30/2022 Bilateral MG 3D screening mammo w/cad, [facility]. Findings: The lower section of the breast of the right breast, the axilla of the right breast and the retroareolar of the right breast were scanned. Targeted ultrasound lower inner quadrant right breast 3:00 to 6:00, particular attention to the 6:00 palpable site with the patient is not able to feel today. No solid or cystic lesion. Additional scanning of the subareolar region and axilla shows no discrete abnormality.. Overall Assessment: Negative, BI-RAD 1 Management: Screening Mammogram of both breasts in 1 year. Clinical management of any suspicious palpable abnormality. If there is a worrisome palpable area that develops, the patient can be rescanned. Patient should continue monthly self breast exams. Results were given to the patient verbally at the time of exam. Electronically signed and approved by: Waylon Fuentes M.D. Radiologist
== END | disposition home or self-care (01) ==
LOC: RADUSWWP 14:07
PROVIDERS: ATTEND Family Medicine
DX: R92.8 Other abnormal and inconclusive findings on diagnostic imaging of breast (principal); Z80.3 Family history of malignant neoplasm of breast

== ENCOUNTER → 2022-11-20 | Outpatient (CLI) | payer BC ==
--- NOTE | 2022-11-21 08:14 | XR ---
EXAMINATION TYPE: XR cervical spine w flex/ext DATE OF EXAM: 11/20/2022 COMPARISON: NONE HISTORY: Congenital malformation TECHNIQUE: 7 views are submitted. FINDINGS: The odontoid is intact. There are no compression deformities. The prevertebral soft tissue structur es are within normal limits. Severe degenerative disc disease C6-C7. There is slight retrolisthesis on extension views multiple upper cervical segments and slight anterior listhesis on flexion views. N onspecific soft tissue calcification seen anterior soft tissues. IMPRESSION: 1. Severe degenerative disc disease C6-C7. 2. Alignment alteration on flexion and extension associated with ligamentous laxity.
== END | disposition home or self-care (01) ==
LOC: RADXRMAIN 15:55
PROVIDERS: ATTEND Neurological Surgery
DX: M50.323 Other cervical disc degeneration at C6-C7 level (principal); Q07.9 Congenital malformation of nervous system, unspecified
CPT/HCPCS: 72052

== ENCOUNTER → 2022-11-22 | Outpatient (CLI) | payer BC ==
--- NOTE | 2022-11-25 21:55 | MR ---
EXAMINATION TYPE: MR cervical spine wo con DATE OF EXAM: 11/22/2022 COMPARISON: Radiograph 11/20/2022 HISTORY: 47-year-old female Q07.9, Neck pain, headaches, BUE radiculopathy. History of spinal decompr ession. TECHNIQUE: Multiplanar, multisequence images of the cervical spine were acquired without contrast. FINDINGS: No craniocervical junction abnormality, predental space widening, or prevertebral soft tissue swellin g. Preserved alignment of the cervical spine. Mild degenerative disc disease particularly at C6-C7 where a small disc osteophyte complex impresses on the ventral thecal sac and contributes to a mild narrowing of the spinal canal. There is abutment of the ventral cord but no cord flattening or cord compression. Otherwise, no focal disc herniation or significant spinal canal stenosis seen. Normal course, caliber, and signal intensity of the cervical spinal cord. Scattered facet arthropathy is present. Changes result in mild right neuroforaminal narrowing at C3-C4 and C4-C5. Mild asymmetric right-sided lingual tonsillar hypertrophy. IMPRESSION: 1. Mild degenerative disc disease predominantly at C6-C7 with scattered mild facet arthropathy. 2. Mild posterior disc bulge at C6-C7 contributes to mild narrowing of the spinal canal with abutment of the ventral cord but no cord compression or canal compromise. 3. Mild right-sided neural foraminal narrowing at C3-C4 and C4-C5.
== END | disposition home or self-care (01) ==
LOC: RADMRIMAIN 12:05
PROVIDERS: ATTEND Neurological Surgery
DX: M50.123 Cervical disc disorder at C6-C7 level with radiculopathy (principal); M47.22 Other spondylosis with radiculopathy, cervical region; M99.71 Connective tissue and disc stenosis of intervertebral foramina of cervical region; Q07.9 Congenital malformation of nervous system, unspecified
CPT/HCPCS: 72141

== ENCOUNTER → 2023-11-07 | Outpatient (CLI) | payer BC ==
--- NOTE | 2023-11-13 11:59 | MM ---
Reason for Exam: Screening (asymptomatic). Last mammogram was performed 1 year(s) and 7 month(s) ago. Patient History: Menarche at age 14. First Full-Term at age 22. Postmenopausal. Patient has history of breast feeding. Patient tested for BRCA2 outcome was positive. Mother had breast cancer, age 71. Prior Study Comparison: 08/19/2012 Left Diagnostic Mammogram, [facility]. 03/05/2013 Bilateral Diagnostic Mammogram, [facility]. 08/10/2013 Left Diagnostic Mammogram, [facility]. 06/28/2020 Bilateral Screening Mammogram, [facility]. 03/30/2022 Bilateral MG 3D screening mammo w/cad, [facility]. Tissue Density: The breasts are heterogeneously dense, which may obscure small masses. Findings: Analyzed By CAD. There is no suspicious group of microcalcifications or new suspicious mass in either breast. Benign calcifications. Overall Assessment: Benign, BI-RAD 2 Management: Screening Mammogram of both breasts in 1 year. . Patient should continue monthly self-breast exams. A clinical breast exam by your physician is recommended on an annual basis. This exam should not preclude additional follow-up of suspicious palpable abnormalities. Note on Valarie scores and lifetime risk: 1. A Valarie score greater than 3% is considered moderate risk. If this is the case, consider specialist referral to assess eligibility for a risk reducing agent. 2. If overall lifetime risk for the development of breast cancer is 20% or higher, the patient may qualify for future screening with alternating mammogram and breast MRI. Electronically signed and approved by: Simone Howard M.D. Radiologis
== END | disposition home or self-care (01) ==
LOC: RADMAMWWP 13:30
PROVIDERS: ATTEND Family Medicine
DX: Z12.31 Encounter for screening mammogram for malignant neoplasm of breast (principal); Z80.3 Family history of malignant neoplasm of breast; Z78.0 Asymptomatic menopausal state
CPT/HCPCS: 77063; 77067

== ENCOUNTER → 2024-03-26 | Outpatient (CLI) | payer BC ==
--- NOTE | 2024-03-26 12:32 | US ---
EXAMINATION TYPE: US abdomen complete DATE OF EXAM: 03/26/2024 COMPARISON: Ultrasound gallbladder 07/10/2020, ultrasound abdomen 12/25/2017 CLINICAL INDICATION: Female, 49 years old with history of R10.9 ABD PAIN; Left side pain. TECHNIQUE: Grayscale and color Doppler imaging of the abdomen was performed. FINDINGS: EXAM MEASUREMENTS: Liver Length: 15.9 cm Gallbladder Wall: 0.1 cm CBD: 0.4 cm Spleen: 10.5 cm Right Kidney: 10.9 x 5.0 x 4.2 cm Left Kidney: 10.4 x 4.6 x 4.5 cm Pancreas: Obscured by bowel gas Liver: wnl Gallbladder: No stones or wall thickening Evidence for sonographic Guzman's sign: neg CBD: wnl Spleen: wnl Right Kidney: No hydronephrosis or masses seen Left Kidney: No hydronephrosis or masses seen Upper IVC: wnl Abd Aorta: No AAA visualized at time of scan The liver is homogenous. The intrahepatic portion of the IVC and proximal abdominal aorta are within normal limits. There is no evidence of cholelithiasis. Common bile duct is unremarkable. The panc reas is obscured by overlying bowel gas. The spleen is unremarkable. Kidneys are symmetric and free of hydronephrosis. No renal lesions are seen. IMPRESSION: No ultrasound evidence for acute process. [facility], , 03/26/2024 12:30 PM
== END | disposition home or self-care (01) ==
LOC: RADUSWWP 08:17
PROVIDERS: ATTEND Family Medicine
DX: R10.9 Unspecified abdominal pain (principal)
CPT/HCPCS: 76700

== ENCOUNTER → 2024-09-14 | Outpatient (CLI) | payer BC ==
--- NOTE | 2024-09-14 13:26 | US ---
EXAMINATION TYPE: US carotid duplex BILAT DATE OF EXAM: 09/14/2024 COMPARISON: NONE CLINICAL INDICATION: Female, 49 years old with history of I65.29 OCCLUSION AND STENOSIS OF UNSPECIFIE D CAROT; Pt states went to the dentist and when doing a panorama they found "artifact" in carotid art eries. Additional History: I65.- Occlusion/stenosis of specified precerebral artery, specified laterality TECHNIQUE: Grayscale, color Doppler and spectral Doppler evaluation of the bilateral carotid systems and vertebral arteries. Indirect Doppler criteria was utilized. FINDINGS: EXAM MEASUREMENTS: RIGHT: Peak Systolic Velocity (PSV) cm/sec ----- Right CCA: 100.4 ----- Right ICA: 128.6 ----- Right ECA: 130.0 ICA/CCA ratio: 1.3 RIGHT: End Diastole cm/sec ----- Right CCA: 34.4 ----- Right ICA: 44.6 ----- Right ECA: 35.6 LEFT: Peak Systolic Velocity (PSV) cm/sec ----- Left CCA: 101.7 ----- Left ICA: 99.1 ----- Left ECA: 114.7 ICA/CCA ratio: 1.0 LEFT: End Diastole cm/sec ----- Left CCA: 38.3 ----- Left ICA: 38.3 ----- Left ECA: 25.4 VERTEBRALS (direction of flow): Right Vertebral: Antegrade Left Vertebral: Antegrade Rhythm: Normal RENDERER NOTES: No plaque seen. No elevated velocities. Left ICA appeared slightly tortuous and ve ssel dove deep. Color Doppler imaging shows patency with blood flow throughout the carotid artery. Spectral waveforms are within normal limits. IMPRESSION: Elevated peak systolic velocity bilateral common carotid arteries raises concern for unc ontrolled hypertension. Correlate clinically. Right: No hemodynamically significant stenosis. Left: No hemodynamically significant stenosis. Criteria for Assigning % of Stenosis / Diameter reduction (Estimation based on the indirect measurements of the internal carotid artery velocities (ICA PSV). 1. Normal (no stenosis)=ICA PSV < 180 cm/s: ratio < 2.0: ICA EDV<40 cm/s. 2. Less than 50% stenosis=ICA PSV < 180 cm/s: ratio < 2.0: ICA EDV<40 cm/s. 3. 50 to 69% stenosis=ICA PSV of 180 to 230 cm/s: ration 2.0 ? 4.0: ICA EDV 40-100 cm/s. PSV 125-180 cm/sec and ICA/CCA PSV Ratio ? 2.0 is also consistent with 50-69% stenosis 4. Greater than 70% stenosis to near occlusion= ICA PSV > 230 cm/s: ratio > 4.0: ICA EDV > 100 cm/s. 5. Near occlusion= ICA PSV velocities may be low or undetectable: variable ratio and ICA EDV. 6. Total occlusion=unable to detect flow. [facility], , 09/14/2024 1:24 PM
== END | disposition home or self-care (01) ==
LOC: RADUSWWP 12:20
PROVIDERS: ATTEND Family Medicine
DX: I65.23 Occlusion and stenosis of bilateral carotid arteries (principal)
CPT/HCPCS: 93880

== ENCOUNTER → 2024-09-17 | Outpatient (CLI) | payer BC ==
--- NOTE | 2024-09-17 14:51 | US ---
EXAMINATION TYPE: US venous doppler duplex LE LT DATE OF EXAM: 09/17/2024 2:03 PM COMPARISON: NONE CLINICAL INDICATION: Female, 49 years old with history of M79.662 PAIN IN LEFT LOWER LEG; Calf pain, no swelling, no history of DVT TECHNIQUE: The lower extremity deep venous system is examined utilizing real time linear array sonog oumou with graded compression, color doppler sonography, and spectral doppler. SIDE PERFORMED: Left FINDINGS: VESSELS IMAGED: Common Femoral Vein Deep Femoral Vein Greater Saphenous Vein * Femoral Vein Popliteal Vein Small Saphenous Vein * Proximal Calf Veins Posterior tibial veins Peroneal veins (* superficial vessels) Left Leg: Negative for DVT, Color Doppler imaging shows patency of the vessels. Spectral waveforms a re within normal limits. IMPRESSION: No evidence for DVT within the left lower extremity. [facility], , 09/17/2024 2:49 PM
== END | disposition home or self-care (01) ==
LOC: RADUSWWP 13:39
PROVIDERS: ATTEND Family Medicine
DX: M79.662 Pain in left lower leg (principal)

== ENCOUNTER → 2024-09-21 | Outpatient (CLI) | payer BC ==
--- NOTE | 2024-09-21 11:47 | CT ---
EXAMINATION TYPE: CT heart w calcium score DATE OF EXAM: 09/21/2024 COMPARISON: None CLINICAL INDICATION: Female, 49 years old with history of Z82.49 FM HX ISCHEMIC HEART DISEASE; PHH, f amily history of heart disease TECHNIQUE: Prospective Gating was used. Slice thickness: 3mm. Density threshold (HU): 130, Pixel threshold: 3, Algorithm: discrete. CT DLP: 76.[address] CTDI: 3.9 mGy Automated exposure control for dose reduction was used. FINDINGS: CT CALCIUM SCORING Coronary calcium is a marker for plaque (fatty deposits) in a blood vessel or atherosclerosis (harden ing of the arteries). The presence and amount of calcium detected in a coronary artery by the CT sca n, indicates the presence and amount of atherosclerotic plaque. These calcium deposits appear years before the development of heart disease symptoms such as chest pain and shortness of breath. A calcium score is computed for each of the coronary arteries based upon the volume and density of th e calcium deposits. This can be referred to as your calcified plaque burden. It does not correspond directly to the percentage of narrowing in the artery but does correlate with the severity of the un derlying coronary atherosclerosis. RESULTS Region: LM Calcium Score ([place]): 0 Volume (mm3): 0 Mass (g): 0 Region: RCA Calcium Score ([place]): 0 Volume (mm3): 0 Mass (g): 0 Region: LAD Calcium Score ([place]): 0 Volume (mm3): 0 Mass (g): 0 Region: CX Calcium Score ([place]): 0 Volume (mm3): 0 Mass (g): 0 Region: PDA Calcium Score ([place]): 0 Volume (mm3): 0 Mass (g): 0 Total: Calcium Score ([place]): 0 Volume (mm3): 0 Mass (g): 0 Incidental findings: None. IMPRESSION: Calcium Score: 0 Implication: No identifiable plaque. Risk of Coronary Artery Disease: Very low, generally less than 5%. CALCIUM SCORE IMPLICATION RISK OF C ORONARY ARTERY DISEASE 0 No identifiable plaque Very low, generally less than 5% 1-10 Minimal identifiable plaque Very unlikely, less than 10% 11-100 Definite, at least mild atherosclerotic plaque Mild or m inimal coronary narrowings likely 101-400 Definite, at least moderate atherosclerotic plaque Mild coronary ar live disease highly likely, significant narrowing possible 401 or Higher Extensive atherosclerotic plaque High lik elihood of at least one significant coronary narrowing [facility], , 09/21/2024 11:44 AM
== END | disposition home or self-care (01) ==
LOC: RADCTMAIN 10:15
PROVIDERS: ATTEND Family Medicine
DX: Z82.49 Family history of ischemic heart disease and other diseases of the circulatory system (principal)
CPT/HCPCS: 75571